=== PATIENT | female | born 1975 | race Hispanic/Latino ===

== ENCOUNTER 2017-10-21 08:20 | Emergency (ER) | payer OTHER ==
[~2017-10-21] VITALS: Ht 160 cm; Wt 117.9 kg
[2017-10-21] MEDS ORDERED: ONDANSETRON HCL INJ 2 MG/ML VIAL IV STA (08:36)
[2017-10-21] MEDS ORDERED: SODIUM CHLORIDE 0.9% 1000ML 1,000 ML IV SCH (08:45)
[2017-10-21] MEDS ORDERED: MECLIZINE HCL 12.5 MG TAB PO ONE (08:45)
[2017-10-21] MEDS ORDERED: IOPAMIDOL 300MG/ML 100 ML INFUS..BTL IV ONE (10:15)
[2017-10-21 10:44] VITALS: BP 121/83
== END 2017-10-21 11:04 | disposition home or self-care (01) ==
LOC: FSED 08:20
DX: R42 Dizziness and giddiness (principal)
CPT/HCPCS: 70460; 80048; 80053; 81003; 99284; J2405; J7030; Q9967